=== PATIENT | female | born 1990 | race Caucasian/White ===

== ENCOUNTER 2016-07-21 09:20 | Outpatient (CLI) | payer OTHER | END 2016-07-21 09:21 | disposition home or self-care (01) | DX: Z11.3 Encounter for screening for infections with a predominantly sexual mode of transmission (principal) ==

== ENCOUNTER 2016-07-22 16:06 | Outpatient (CLI) | payer OTHER | END 2016-07-22 16:07 | disposition home or self-care (01) | DX: Z36 Encounter for antenatal screening of mother (principal) ==

== ENCOUNTER 2016-09-02 15:59 | Outpatient (CLI) | payer OTHER | END 2016-09-02 16:00 | disposition home or self-care (01) | DX: Z36 Encounter for antenatal screening of mother (principal) ==

== ENCOUNTER 2016-09-09 16:10 | Outpatient (CLI) | payer SELFPAY | END 2016-09-09 16:11 | disposition home or self-care (01) | DX: O35.1XX0 Maternal care for (suspected) chromosomal abnormality in fetus, not applicable or unspecified (principal) ==

== ENCOUNTER 2016-10-07 07:31 | Outpatient (CLI) | payer OTHER ==
--- NOTE | 2016-10-07 14:07 | Ultrasound Report ---
OB ULTRASOUND: 10/07/2016 CLINICAL INDICATION: anatomy. TECHNIQUE: Real-time scanning was performed with apparel trimmings sales representative static images obtained. LAST MENSTRUAL PERIOD -- Clinical Age -- US Age 19 weeks 6 days EFW [place] 318 g EFW% Hadlock -- Heart Rate 152 bpm EDC -- US EDC 02/25/2017 BPD [place] 19 weeks 4 days; means mm 44.8 HC [place] 19 weeks 6 days; means mm 173.0 AC [place] 19 weeks 5 days; means mm 144.2 FL [place] 20 weeks 0 days; means mm 32.2 Presentation moving Placental Location anterior Cervical Length 3.6 cm Amniotic Fluid 12.7 5-50% FINDINGS: There is a single viable intrauterine gestation, in variable position. heart rate is 152 BPM. The placenta is anterior, and is low lying. No berhane previa is identified, with the placental tip terminating 6 mm from the internal os. Amniotic fluid volume is normal, with an JUAN of 12.7. By size, the fetus measures 19.9 weeks. The following anatomic structures were visualized and appear normal: The intracranial contents, including the ventricles and posterior fossa; the lips and orbits; the spine; the heart, including 4 chamber view and outflow tracts, and diaphragm; the abdominal contents, including the stomach, the bilateral kidneys, and urinary bladder, as well as a normal 3 vessel cord insertion; 4 limbs. No free fluid or adnexal lesion is appreciated. IMPRESSION: SINGLE VIABLE INTRAUTERINE GESTATION, MEASURING 19.9 WEEKS BY SIZE. NORMAL ANATOMIC SURVEY. ANTERIOR, LOW LYING PLACENTA. THIS SHOULD BE REEVALUATED IN THE THIRD TRIMESTER. MTDD
== END 2016-10-07 07:32 | disposition home or self-care (01) ==
LOC: DI 07:31
PROVIDERS: ATTEND Nurse Practitioner Obstetrics & Gynecology
DX: Z36 Encounter for antenatal screening of mother (principal); O44.42 Low lying placenta NOS or without hemorrhage, second trimester
CPT/HCPCS: 76811

== ENCOUNTER 2016-11-18 07:46 | Outpatient (CLI) | payer OTHER ==
[2016-11-18 09:05] LABS: HCT - HEMATOCRIT 30.8 % (37.0-47.0); HGB - HEMOGLOBIN 10.6 g/dL (12.0-16.0); MEAN CORPUSCULAR HEMOGLOBIN 31.2 pg (27.0-31.0); MEAN CORPUSCULAR HGB CONC 34.4 g/dL (32.0-36.0); MEAN CORPUSCULAR VOLUME 90.6 fL (81.0-99.0); MEAN PLATELET VOLUME 6.9 fL (7.9-10.8); RED BLOOD COUNT 3.4 10^6/uL (4.20-5.40); RED CELL DISTRIBUTION WIDTH 13.6 % (12.0-15.0); WHITE BLOOD COUNT 17.7 x10^3/uL (4.8-10.8)
== END 2016-11-18 07:47 | disposition home or self-care (01) ==
LOC: LAB 07:46
PROVIDERS: ATTEND Obstetrics & Gynecology
DX: Z34.90 Encounter for supervision of normal pregnancy, unspecified, unspecified trimester (principal)
CPT/HCPCS: 36415; 82950; 86850

== ENCOUNTER 2016-11-24 10:30 | Outpatient (CLI) | payer OTHER | END 2016-11-24 10:31 | disposition home or self-care (01) | LOC: LAB 10:30 | PROVIDERS: ATTEND Obstetrics & Gynecology | DX: Z53.9 Procedure and treatment not carried out, unspecified reason (principal) ==

== ENCOUNTER → 2016-11-24 | Outpatient (CLI) | payer OTHER ==
[2016-11-24 08:44] LABS: GTT GLUCOSE,FASTING 94 mg/dL (70-100)
== END ==
LOC: LAB 08:00
PROVIDERS: ATTEND Obstetrics & Gynecology
DX: O99.810 Abnormal glucose complicating pregnancy (principal)
CPT/HCPCS: 36415; 82951

== ENCOUNTER 2016-12-02 13:11 | Outpatient (CLI) | payer OTHER ==
--- NOTE | 2016-12-02 18:18 | Ultrasound Report ---
LIMITED OB ULTRASOUND: 12/02/2016 CLINICAL INDICATION: Followup low-lying placenta. COMPARISON: 10/07/2016 TECHNIQUE: Real-time scanning was performed with inside outside sales representative static images obtained. There is a single viable intrauterine gestation, with heart rate 140 BPM. The cervix measures 3.2 cm, and is closed. Previously seen low-lying placenta has resolved. No previa is identified. IMPRESSION: RESOLUTION OF PREVIOUSLY SEEN LOW-LYING PLACENTA. JOB #: [id number] EXT JOB #:[id number]
== END 2016-12-02 13:12 | disposition home or self-care (01) ==
LOC: DI 13:11
PROVIDERS: ATTEND Obstetrics & Gynecology
DX: O44.42 Low lying placenta NOS or without hemorrhage, second trimester (principal)
CPT/HCPCS: 76815

== ENCOUNTER 2017-01-09 14:23 | Outpatient (CLI) | payer OTHER ==
[2017-01-09 15:03] LABS: BILIRUBIN,TOTAL 0.5 mg/dL (0.2-1.0); TOTAL PROTEIN 6.6 g/dL (6.7-8.2)
[2017-01-09 15:04] LABS: BILIRUBIN,DIRECT < 0.1 mg/dL (0.1-0.5)
== END 2017-01-09 14:24 | disposition home or self-care (01) ==
LOC: LAB 14:23
PROVIDERS: ATTEND Registered Nurse
DX: L29.8 Other pruritus (principal)
CPT/HCPCS: 36415; 80076; 82239

== ENCOUNTER → 2017-01-22 | Outpatient (CLI) | payer OTHER | LOC: LAB.R 08:00 | PROVIDERS: ATTEND Registered Nurse | DX: Z34.83 Encounter for supervision of other normal pregnancy, third trimester (principal) | CPT/HCPCS: 87081 ==

== ENCOUNTER 2017-02-09 13:08 | Inpatient (IN) | payer OTHER ==
[2017-02-09] MEDS ORDERED: OXYTOCIN/SODIUM CHLORIDE 250 ML IV ONE (14:04)
[2017-02-09] MEDS ORDERED: ONDANSETRON 4 MG/2 ML VIAL IVP PRN (14:04)
[2017-02-09] MEDS ORDERED: fentaNYL 100 MCG/2 ML VIAL IVP PRN (14:04)
[2017-02-09 14:38] LABS: BASOPHILS # (AUTO) 0.1 10^3/uL (0.0-0.1); BASOPHILS % (AUTO) 0.6 %; EOSINOPHILS # (AUTO) 0.1 10^3/uL (0.0-0.7); EOSINOPHILS % (AUTO) 0.6 %; HCT - HEMATOCRIT 34.4 % (37.0-47.0); HGB - HEMOGLOBIN 11.5 g/dL (12.0-16.0); LYMPHOCYTES # (AUTO) 1.9 10^3/uL (1.5-3.5); LYMPHOCYTES % (AUTO) 10.1 %; MEAN CORPUSCULAR HEMOGLOBIN 30.1 pg (27.0-31.0); MEAN CORPUSCULAR HGB CONC 33.5 g/dL (32.0-36.0); MEAN CORPUSCULAR VOLUME 89.7 fL (81.0-99.0); MEAN PLATELET VOLUME 8.4 fL (7.9-10.8); MONOCYTES # (AUTO) 0.8 10^3/uL (0.0-1.0); MONOCYTES % (AUTO) 4.3 %; NEUTROPHILS # (AUTO) 15.5 10^3/uL (1.5-6.6); NEUTROPHILS % (AUTO) 84.4 %; RED BLOOD COUNT 3.83 10^6/uL (4.20-5.40); UNCORRECTED WHITE BLOOD COUNT 18.3 x10^3/uL; WHITE BLOOD COUNT 18.3 x10^3/uL (4.8-10.8)
--- NOTE | 2017-02-09 14:52 | HISTORY & PHYSICAL EXAMINATION ---
Admit History - Instructions [place]/Slash: -Left hand click circles element as positive or present. -Right hand click slashes element as negative or not present. - Visit Reason Visit Reason: Membranes rupture (10:00 initial leak, large gush @ 12:00, clear fluid) - : 1 Parity: 0 Premature: 0 Ectopic: 0 : 0 Care: positive: [facility] Risk/History: positive: None Complications This : positive: Other (GBS positive) Smoking Status: Never smoker - Mother's Labs Mother's Blood Type: positive: B Mother's RH: positive: Positive GBS: positive: Group B Strep Positive Rubella Status: positive: Non-immune Meds/Allgy - Home Medications Home Medications: Ambulatory Orders Medication Instructions Recorded Confirmed Pnv95/Ferrous Fumarate/FA 1 each PO DAILY 02/09/17 02/09/17 [ Formula Tablet] - Allergies Allergies/Adverse Reactions: Allergies Allergy/AdvReac Type Severity Reaction Status Date / Time suture AdvReac Hives Verified 02/09/17 14:52 Physical - Abdominal Exam Vital Signs: Temp Pulse Resp BP Pulse Ox 37.0 C 124 H 16 130/77 98 02/09/17 13:29 02/09/17 13:29 02/09/17 13:29 02/09/17 13:29 02/09/17 13:29 Contraction Frequency (min/apart): q4-6 Contraction Intensity: positive: Mild Uterine Resting Tone: positive: Soft - Monitoring Heart Rate Baseline: 145 Strip Review: positive: Category I - Presentation Presentation: positive: Vertex - Vaginal Exam Membranes: positive: Membranes ruptured (gross SROM, per RN +nitrazine) Dilation (in cm): 2 Effacement (%): 70 Station: positive: -2 Cervical Position: positive: Posterior (Garvin's Score = 5) - Speculum Exam Speculum Exam Performed: positive: No Findings: positive: Gross leak, Nitrazine - Other Notes Labor Progress Note/Additional Text: Patricia is a 26 y/o @ 37w6d by LMP, consistent w/ 1st trimeter OB US. She received care consistently t/o her & her care was notable for abnormal quad screening w/ subsequent normal NIPT & FAS & election to not pursue diagnostic testing, elevated 1-hr gtt w/ WNL 3-hr gtt, pruritus w/ normal total bile acids & LFTs, & GBS positive screening @ 36 weeks' gestation. Her medical hx is notable for ACL repair, removal of cyst @ posterior neck., otherwise unremarkable. She is rubella non-immune & will need vaccination . She takes only a vitamin for medication & is allergic to dissolving sutures (contact dermatitis), unsure what kind of suture, specifically. Patricia experienced SROM for small amount of CAF @ 1000 followed by SROM for large amount of CAF @ 1200. She has had no bleeding. She is having mild, non- painful uterine contractions. She reports good FM. Physical exam: Gen: AAOx3, NAD, WA gravid female HEENT: grossly normocephalic, atraumatic, EOMI Lungs: b/l CTA t/o Heart: RRR [id number], no murmur Abd: gravid, NT, lie longitudinal, position cephalic, EFW 6.5-7#, palpable movement SVE: per RN /-2/med/post, gross SROM for CAF, nitrazine positive Extremities: FROM t/o, trace b/l pedal edema, no erythema, negative Tika's Skin: c/d/i, no lesion, striae gravidarum diffusely covering abdomen Neuro: no focal deficit Psych: excited, eager for labor, well-supported by partner, Jim, who is present & involved EFM: BL 145bpm, + accels, no decels, mod variability TOCO: UCs q4-6 min Plan for Labor - Plan For Labor Plan for Labor: A: 26 y/o @ 37w6d w/ SROM x5 hours, afebrile, CAF GBS positive FHTs cat I Unfavorable cervical status, not in labor Adequate pain control w/o analgesia/anesthesia P: 1. Admit to FBP for SROM 2. reviewed clinical scenario & options for management, including risks/benefits 3. Pt opts for misoprostol 50mcg po q 4 hours, reviewed protocol & CEFM 4. GBS positive, begin PCN now & continue per protocol q 4 hours for IPAP 5. Reassess cervical status x4 hours after initial misoprostol administration, earlier PRN 6. Analgesia/anesthesia PRN per pt request 7. Reviewed plan of care w/ pt, partner & RN @ bedside; all in agreement, without concerns. Dr. Ankur DO, back up CUSTOMER EXPERIENCE LEADER, updated as to pt's clinical status.
[2017-02-09] MEDS ORDERED: PENICILLIN G POTASSIUM 5,000,000 UNIT in SODIUM CHLORIDE 0.9% MINIBAG 100 ML IV ONE (15:00)
[2017-02-09] MEDS ORDERED: OXYTOCIN/SODIUM CHLORIDE 250 ML IV SCH (15:00)
[2017-02-09] MEDS: LACTATED RINGERS 1,000 ML IV SCH (15:21)
[2017-02-09] MEDS ORDERED: miSOPROStol 100 MCG TABLET PO SCH ×2 (16:00→17:00)
[2017-02-09] MEDS ORDERED: PENICILLIN G POTASSIUM 2,500,000 UNIT in SODIUM CHLORIDE 0.9% 100ML 100 ML IV SCH (19:00)
[2017-02-09] MEDS: PENICILLIN G POTASSIUM 2,500,000 UNIT in SODIUM CHLORIDE 0.9% 100ML 100 ML IV SCH (19:33)
--- NOTE | 2017-02-09 20:59 | PROVIDER PROGRESS NOTE ---
Labor Progress Note - Uterine Monitoring Uterine Monitoring Mode: positive: External toco Contraction Frequency (min/apart): 2-6 Contraction Intensity: positive: Mild to moderate Uterine Resting Tone: positive: Soft - Monitoring Monitor Mode: positive: External ultrasound Heart Rate Baseline: 135 Heart Rate Variability: positive: Moderate (6-25 bmp) Accelerations: positive: Present, 15x15 Decelerations: positive: None Strip Review: positive: Category I - Vaginal Exam Dilation (in cm): 3 Effacement (%): 80 Station: -1 Cervical Position: Midposition - Labor Progress Note Labor Progress Note/Additional Text: S: Patricia is feeling her contractions more intensely now & is coping well w/ her discomfort. She is not interested in hydrotherapy & is not particularly interested in being up & out of the bed. She is potentially interested in utilizing a ball, but expresses an interest in fentanyl to help her relax w/ her contractions & thinks she will ultimately desire epidural anesthesia. Her partner, Jim, is present @ the bedside & is generally supportive. O: VS: T98.3 HR 93 RR 16 BP 127/79 EFM: BL 135bpm, + accels, no decels, mod variability TOCO: q2-5 min x40-80 seconds, palpably mild-moderate SVE: 3/80/-1, mid-position, medium consistency: Garvin's score: 9; position ROP A: 26 y/o @ 37w6d s/p SROM for CAF @ 1000, for a total ruptured duration of 11 hours, afebrile s/p effective cervical ripening w/ 1 dose po misoprostol GBS positive s/p 2 doses IV PCN for IPAP Adequate pain control w/o analgesia/anesthesia FHTs cat I P: 1. Begin Pitocin infusion & titrate to maintain adequate contraction pattern by tocometry 2. Continue IV PCN per protocol for GBS prophylaxis 3. Reassess cervical status x4 hours s/p establishment of adequate contraction pattern by tocometry, earlier PRN 4. Reviewed all options for pain management, including pharmacologic/non- pharmacologic measures; analgesia/anesthesia PRN per pt request 5. Reviewed optimal positioning to encourage rotation & descent; assisted w/ placement on ball 6. Reviewed plan of care w/ pt & RN @ bedside; both in agreement, without concerns.
[2017-02-09] MEDS: SODIUM CHLORIDE FLUSH 0.9% 10 ML SYRINGE IVP PRN (21:48)
[2017-02-09] MEDS ORDERED: SODIUM CHLORIDE FLUSH 0.9% 10 ML SYRINGE IVP SCH (22:00)
[2017-02-10] MEDS: PENICILLIN G POTASSIUM 2,500,000 UNIT in SODIUM CHLORIDE 0.9% 100ML 100 ML IV SCH ×2 (00:11→03:51)
[2017-02-10] MEDS: LACTATED RINGERS 1,000 ML IV SCH ×2 (00:47→06:50)
[2017-02-10] MEDS ORDERED: fent/BUPIV 2 MCG/0.125% 250 ML EP ONE (00:58)
[2017-02-10] MEDS ORDERED: LACTATED RINGERS 500 ML IV ONE (01:41)
[2017-02-10] MEDS ORDERED: NALBUPHINE 20 MG/ML AMP IVP PRN (01:41)
[2017-02-10] MEDS ORDERED: ePHEDrine 50 MG/ML VIAL IVP PRN (01:41)
[2017-02-10] MEDS ORDERED: diphenhydrAMINE INJ 50 MG/ML VIAL IVP PRN (01:41)
[2017-02-10] MEDS ORDERED: fent/BUPIV 2 MCG/0.125% 250 ML EP PRN (01:41)
[2017-02-10] MEDS ORDERED: NALOXONE 0.4 MG/ML VIAL IVP PRN (01:41)
[2017-02-10] MEDS ORDERED: METOCLOPRAMIDE 10 MG/2 ML VIAL IVP PRN (01:41)
[2017-02-10] MEDS ORDERED: ONDANSETRON 4 MG/2 ML VIAL IVP PRN (01:41)
--- NOTE | 2017-02-10 02:47 | PROVIDER PROGRESS NOTE ---
Labor Progress Note - Uterine Monitoring Uterine Monitoring Mode: positive: External toco Contraction Frequency (min/apart): 2-3 Contraction Intensity: positive: Strong Uterine Resting Tone: positive: Soft - Monitoring Monitor Mode: positive: External ultrasound Heart Rate Baseline: 135 Heart Rate Variability: positive: Moderate (6-25 bmp) Accelerations: positive: Present, 15x15 Decelerations: positive: Early Strip Review: positive: Category I - Vaginal Exam Dilation (in cm): 9.5 Effacement (%): 100 Station: -1 Cervical Position: Anterior - Labor Progress Note Labor Progress Note/Additional Text: S: Pt comfortable w/ epidural anesthesia. Had been feeling significant lumbar & b/l hip pain. That sensation has resolved. No sensation of pressure. Partner present @ the bedside, supportive. O: VS: T 98.4; HR 86 RR 18 BP 111/73 EFM: BL 135bpm, +accels, occ early decels, mod variability TOCO: UCs q2-4 min on 1 mU/min of Pitocin SVE: thin anterior lip/100/-1; position LOP, ongoing leakage of CAF A: 26 y/o @ 38w0d s/p SROM 02/09/2017 @ 1000, for a total ruptured duration of 16.75hrs, afebrile Progressive cervical change s/p misoprostol po x1 dose & Pitocin infusion to max 1mU/min over a period of 5 hours GBS positive s/p 3 doses IV PCN for prophylaxis FHTs cat I Adequate pain control w/ epidural anesthesia P: 1. Allow to labor down x2 hours, then reassess station 2. Continue to titrate Pitocin infusion per protocol to maintain adequate contraction pattern by tocometry 3. Continue IV PCN for GBS prophylaxis per protocol 4. Peanut ball placed, reviewed optimal maternal positioning to facilitate rotation & descent 5. Encouraged frequent voiding; if unable, will catheterize to maximize space for descent
[2017-02-10] MEDS ORDERED: LIDOCAINE 2% 10 ML MDV ONE (03:19)
[2017-02-10] MEDS ORDERED: LIDOCAINE 1% 50 ML MDV ONE (03:21)
--- NOTE | 2017-02-10 06:13 | PROVIDER PROGRESS NOTE ---
Labor Progress Note - Uterine Monitoring Contraction Frequency (min/apart): 2-3 Contraction Intensity: positive: Moderate to strong Uterine Resting Tone: positive: Soft - Monitoring Monitor Mode: positive: External ultrasound Heart Rate Baseline: 130 Heart Rate Variability: positive: Moderate (6-25 bmp) Accelerations: positive: Present, 15x15 Decelerations: positive: Early Strip Review: positive: Category I - Vaginal Exam Dilation (in cm): 10 Effacement (%): 100 Station: 0 Cervical Position: Anterior - Labor Progress Note Labor Progress Note/Additional Text: S: Patricia is comfortable w/ her epidural. She was unable to feel to void & was straight catheterized for 200mL clear yellow urine. She is not having any sensation of pressure & has been unable to feel what she is doing w/ her expulsive efforts over the course of the last 30 minutes. She is having considerable difficulty coordinating her pushing attempts. Her is present @ the bedside & is supportive. O: VS: T98.4 HR 99 RR 20 BP 131/78 EFM BL 130bpm, + accels, early decels, mod variability TOCO: UCs q2-3 min x 60-80 seconds, palpably strong on 1mU/min of Pitocin SVE: 10/100/-1, descends to 0-+1 w/ expulsive efforts occasionally A: 26 y/o @ 38w0d s/p SROM for CAF 02/09/2017 @ 1000, for a total ruptured duration of 20 hours, afebrile GBS positive s/p 4 doses IV PCN for prophylaxis Dense epidural anesthesia w/ adequate pain control Progressive cervical change director a period of 9 hours Difficulty sustaining pushing efforts w/ very minimal sensation & poor coordination P: 1. Attempted various methods of effecting expulsive force w/ little change in ability to consistently, effectively bear down 2. Epidural off to allow to wear down some, will continue to labor down x30 minutes then resume pushing efforts 3. Continue to titrate Pitocin per protocol to maintain adequate contraction pattern by tocometry 4. Continue IV PCN per protocol for GBS prophylaxis 5. Anticipate w/ improved maternal expulsive efforts
--- NOTE | 2017-02-10 07:38 | PROVIDER PROGRESS NOTE ---
Labor Progress Note - Uterine Monitoring Uterine Monitoring Mode: positive: External toco Contraction Frequency (min/apart): 2-5 Contraction Intensity: positive: Moderate to strong Uterine Resting Tone: positive: Soft - Monitoring Monitor Mode: positive: Spiral electrode Heart Rate Baseline: 135 Heart Rate Variability: positive: Moderate (6-25 bmp) Accelerations: positive: Present, 15x15 Decelerations: positive: Early Strip Review: positive: Category I - Vaginal Exam Dilation (in cm): 10 Effacement (%): 100 Station: 0 (descends to +1 w/ expulsive efforts) Cervical Position: Anterior - Labor Progress Note Labor Progress Note/Additional Text: S: Pt complains of b/l hip pain w/ uterine contractions & lumbar pain. Does not have an urge to push, no sensation of pressure. Partner present @ bedside, involved & supportive. O: VS: 98.4, HR 108, RR 20, BP 142/92 EFM (FSE) BL 130bpm, + accels, + early decels, occ variable decel to soheila in 90s w/ spontaneous return to baseline <30 seconds TOCO: UCs q2-6 min x60-80 seconds, palpably strong on 3mU/min of Pitocin SVE: 10100/0-+1 A: 26 y/o @ 38w0d s/p SROM for CAF 02/09/2017 @ 1000, for a total ruptured duration of 21.5 hours, afebrile GBS positive s/p 4 doses IV PCN for prophylaxis Dense epidural anesthesia w/o sensation of pressure & difficulty coordinating expulsive efforts Pushed x40 minutes, rested x30 minutes, now pushing x1 hour w/ more significant descent FHTs cat I-cat II, overall reassuring P: 1. Continue pushing 2. Continue to titrate Pitocin infusion per protocol to maintain adequate labor pattern by tocometry 3. Continue GBS prophylaxis w/ IV PCN per protocol 4. Anticipate
[2017-02-10] MEDS ORDERED: miSOPROStol 200 MCG TABLET SL SCH (08:30)
[2017-02-10] MEDS ORDERED: miSOPROStol 200 MCG TABLET ONE (08:43)
[2017-02-10] MEDS ORDERED: METHYLERGONOVINE 0.2 MG/ML AMP ONE (08:43)
[2017-02-10] MEDS ORDERED: OXYTOCIN/SODIUM CHLORIDE 250 ML IV ONE (09:11)
--- NOTE | 2017-02-10 09:11 | DELIVERY NOTE ---
Delivery Note - Labor Labor: positive: Augmented by oxytocin - Delivery Method Delivery Method: positive: Spontaneous vaginal delivery - Cervical Ripening Method Cervical Ripening Method: positive: Misoprostil (misoprostol 50mcg po x1) - Presentation Presentation: positive: Vertex, OA - occiput anterior - Nuchal Cord Nuchal Cord: positive: None - Anesthetic Anesthetic Type: - Amniotic Fluid Description Amniotic Fluid Description: positive: Clear (SROM 02/09/2017 @ 1000, for a total ruptured duration of 22.5 hours, afebrile t/o) - Episiotomy Type Episiotomy Type: positive: None - Laceration Laceration: positive: None - Delivery Outcome Delivery Outcome: positive: Livebirth - Middle [place] Middle Bass: positive: Placed in direct skin contact with mother, Stimulated, Warmed , [place] used sex: positive: Male - Cord Cord: positive: 3 vessels - Placenta Placenta: positive: Intact, Spontaneous - Estimated Blood Loss Estimated Blood Loss (in cc): 950 - Post Delivery Events Post Delivery Events: positive: Hemorrhage (950mL 3rd stage hemorrhage despite active management of the third stage w/ Pitocin in IVFs; misoprostol 400mcg buccally administered x1 & methergine 0.2mg IM x1 pt's R lateral thigh) - Delivery Comments (Free Text/Narrative) Delivery Comments (Free Text/Narrative): Patricia Randhawa is a 26 y/o [id number] who was admitted @37w6d w/ SR for CAF 02/09 @1000. She received care beginning @ 8 weeks' gestation & was seen consistently t/o her for a total of 11 visits. Patricia began care w/ a BMI of 34.18 & lost 1 pound during the course of the . Her was complicated by positive quad screen followed by negative NIPT & declination of diagnostic testing, elevated 1-hr gtt w/ normal subsequent 3-hr gtt, rubella NI status, pruritus w/o evidence of IHCP, & GBS positive status. She received adequate antibiotic prophylaxis for a total of 4 doses IV PCN during the course of her labor. She elected oral misoprostol administration for cervical ripening & received Pitocin augmentation to a maximum of 4mU/min. She progressed steadily s/p misoprostol & Pitocin administration & requested epidural anesthesia for pain management. She was found to be completely dilated at 0330, for a total first stage duration of 7 hours. FHTs were monitored electronically t/o the first stage & were consistently category I. Patricia elected to labor down x2 hours secondary to a dense epidural & no sensation of pressure. She pushed w/ limited expulsive effort x40 minutes, at which point, her epidural was turned off & she was allowed to labor down for another 30 minutes. FSE was placed during 2nd stage secondary to difficulty maintaining consistent FHT tracing externally. Patricia resumed expulsive efforts w / better effect over time & pushed effectively to achieve of viable male in ANI position over intact perineum 02/10/2017 @ 0828, for a total second stage duration of 4hours, 58minutes, and a total ruptured duration of 22hours, 28minutes. She was afebrile t/o. FHTs were cat I-II & reassuring t/o the 2nd stage. Infant vigorous w/ spontaneous, lusty cry. Placed to maternal abdomen for drying/stim. Delayed cord clamping until cessation of pulsation, then cord clamped x2 by CNM, cut by FOB, 3VC noted, cord blood obtained. Active management of the 3rd stage w/ Pitocin in IVFs. Brisk vaginal bleeding preceded delivery of placenta & was ongoing t/o the 3rd stage, misoprostol 400mcg buccally administered x1 then methergine 0.2mg IM x1 administered in R lateral thigh. Placenta delivered spontaneously, [place], @ 0840, for a total 3rd stage duration of 12 minutes. BOLA intermittently atonic, responded well to bimanual compression & evacuation of moderate amount of clot. FF@U-1. Vagina & perineum inspected & found to be intact. EBL 950mL. Bleeding presently well- controlled. apgars 8 at 1min & 9 at 5min. Weight pending. Infant placed to breast & intermittently latching w/ latch 8/10 w/in 30 minutes of delivery, mother receptive to instruction. Father @ bedside, supportive. Mother & infant stable. Plan po methergine series & CBC x8 hours & in the am. Reviewed PPH implications w/ pt & her partner & encouraged po hydration & slow rise from seated position.
[2017-02-10] MEDS ORDERED: MAGNESIUM HYDROXIDE 2,400 MG/30 ML UDC PO PRN (09:30)
[2017-02-10] MEDS ORDERED: HYDROCORTISONE/PRAMOXINE 10 GM PR PRN (09:30)
[2017-02-10] MEDS ORDERED: OXYTOCIN/SODIUM CHLORIDE 250 ML IV SCH (09:30)
[2017-02-10] MEDS ORDERED: WITCH HAZEL/GLYCERIN 1 EACH MED..PAD TOP PRN (09:30)
[2017-02-10] MEDS ORDERED: HYDROCORTISONE 1% CREAM 28 GM TUBE PR PRN (09:30)
[2017-02-10] MEDS: ACETAMINOPHEN 325 MG TABLET PO SCH ×3 (10:19→22:50)
[2017-02-10] MEDS: CELECOXIB 100 MG CAPSULE PO SCH ×2 (10:19→21:54)
[2017-02-10] MEDS: SODIUM CHLORIDE FLUSH 0.9% 10 ML SYRINGE IVP PRN (14:14)
[2017-02-10] MEDS: CHERRY SYRUP 10 ML UDC PO SCH ×2 (14:33→22:50)
[2017-02-10] MEDS: METHYLERGONOVINE 0.2 MG/ML AMP PO SCH ×2 (14:33→22:50)
[2017-02-10] MEDS: DOCUSATE SODIUM 100 MG CAPSULE PO SCH (21:54)
[2017-02-11] MEDS: ACETAMINOPHEN 325 MG TABLET PO SCH ×2 (04:25→10:01)
[2017-02-11] MEDS: METHYLERGONOVINE 0.2 MG/ML AMP PO SCH (06:37)
[2017-02-11] MEDS: CHERRY SYRUP 10 ML UDC PO SCH (06:37)
[2017-02-11] MEDS ORDERED: FERROUS SULFATE 325 MG TABLET PO SCH (08:00)
[2017-02-11] MEDS ORDERED: PRENATAL VITAMIN TABLET PO SCH (08:00)
--- NOTE | 2017-02-11 08:02 | Discharge Plan ---
Discharge Plan Disposition: Home, Self Care Condition: Good Prescriptions: Acetaminophen [Tylenol] 650 mg PO Q6H #30 tablet Celecoxib [CeleBREX] 200 mg PO BID #10 capsule Diet: Regular Activity Restrictions: pelvic rest x6 weeks Shower Restrictions: No (do not immerse in bath of water) Driving Restrictions: No Weight Bearing: Full Weight Instruction Topics: Exercises Kegel, Breastfeed How To, Jaundice Signs Inf, Vaginal After, Anemia Additional Instructions or Follow Up instructions: Please call as needed for assistance. Emergency after-hours line is still available to you, and you can always call the clinic. Lola is happy to see you before your 2 week visit for support. Please plan to be seen 2 weeks for an office visit with Lola, and please plan to be seen again at 6 weeks for an office visit. You are welcome to call for an appointment as needed before that time. No Smoking: If you smoke, Please STOP! Call for help.
--- NOTE | 2017-02-11 08:10 | DISCHARGE SUMMARY ---
"Discharge Summary Admit Date: 02/09/17 Discharge Date: 02/11/17 Discharging Provider: lola montes de oca Code Status: Attempt Resuscitation Condition at Discharge: Good Discharge Disposition: 01 Home, Self Care Discharge Facility Name: [facility] - DIAGNOSES Admission Diagnoses: Leakage of Amniotic Fluid Group B Strep Positive 37 weeks of Discharge Diagnoses with Status of Each Condition: Immediate pp hemorrhage Asymptomatic anemia secondary to acute blood loss - HPI History of Present Illness: Patricia was admitted for SROM w/o labor @37w6d. She was leaking CAF. She was treated adequately w/ 4 doses IV PCN for GBS prophylaxis. She underwent cervical ripening w/ 1 dose oral misoprostol & subsequently received Pitocin infusion to maximum of 4mU/min infused. She received epidural anesthesia for her discomfort in labor. She progressed steadily to complete dilatation & delivered vaginally over an intact perineum w/o complication. Infant apgars 8/9 ; weight 6#14oz. She experienced immediate pp hemorrhage during the 3rd stage of labor, despite active management. Her bleeding was managed effectively w/ uterotonics & bimanual compression. - CONSULTS | PROCEDURES Procedures: Cervical ripening Induction of labor Epidural placement - HOSPITAL COURSE Hospital Course: Patricia underwent IOL for SROM w/o labor & received GBS prophylaxis w/ IV PCN. She received an epidural for pain management. She delivered vaginally over an intact perineum. Infant apgars were 8/9. She experienced a 3rd stage hemorrhage despite active management, and her bleeding was well-controlled w/ uterotonics & bimanual compression. , she was ambulating & voiding w/ o difficulty. She was passing flatus & tolerating po intake. She was well w/ excellent latch. She had minimal lochia rubra & was taking po methergine series w/o incident. She denied dizziness or lightheadedness & was not feeling weak. She was hydrating well. She was not planning to return to work & her partner would have 10 days off to assist her at home. Her mother, who is a former NICU nurse, had joined her from [place] to assist her over the course of the next 2-3 weeks. She was able to fully articulate pp warning s/sx, including pp depression s/sx, and pp aftercare instructions. She was ready to leave the hospital. - ALLERGIES Allergies/Adverse Reactions: Allergies Allergy/AdvReac Type Severity Reaction Status Date / Time suture AdvReac Hives Verified 02/09/17 14:52 - MEDICATIONS Home Medications: Ambulatory Orders Medication Instructions Recorded Confirmed Pnv95/Ferrous Fumarate/FA 1 each PO DAILY 02/09/17 02/09/17 [ Formula Tablet] Acetaminophen [Tylenol] 650 mg PO Q6H #30 tablet 02/11/17 Celecoxib [CeleBREX] 200 mg PO BID #10 capsule 02/11/17 Home Medications Other | Comments: Methergine 0.2mg po TID x2 days (for a total of 3 days). #6tabs 0 refills. Rx electronically sent to pharmacy. - PHYSICAL EXAM AT DISCHARGE General Appearance: positive: No acute distress, Alert Eyes Bilateral: positive: Normal inspection, PERRL, EOMI ENT: positive: ENT inspection nml Respiratory: positive: Chest non-tender, No respiratory distress, Breath sounds nml Cardiovascular: positive: Regular rate & rhythm, No murmur, No gallop Abdomen: positive: Non-tender, Nml bowel sounds, No distention, Other (FF U-1). negative: Mass Skin: positive: Color nml, No rash, Warm, Dry Extremities: positive: Non-tender, Full ROM, Nml appearance, No pedal edema. negative: Calf tenderness, Tika's sign/cords Neurologic/Psychiatric: positive: Oriented x3, CN's nml (2-12), Motor nml, Sensation nml, Mood/affect nml Physical Exam Other/Comments: Breasts b/l S, NT; Nipples b/l intact & everted; perineum intact w/o erythema/ edema/ecchymosis. Minimal lochia rubra. - LABS Result Diagrams: 02/11/17 06:25 - FOLLOW UP Follow Up: x2 weeks in clinic w/ Lola Montes De Oca CNM, ARNP & x6 weeks in clinic w/ Lola Montes De Oca CNM, ARNP; earlier PRN - TIME SPENT Time Spent in Discharge (Minutes): 30"
[2017-02-11] MEDS: DOCUSATE SODIUM 100 MG CAPSULE PO SCH (09:12)
[2017-02-11] MEDS: CELECOXIB 100 MG CAPSULE PO SCH (10:01)
[2017-02-11] MEDS ORDERED: MEASLES,MUMPS & RUBELLA VACC 0.5 ML VIAL SUBQ ONE (12:00)
[2017-02-11 15:16] VITALS: BP 115/68
--- NOTE | 2017-02-11 15:21 | Labor Flowsheet ---
Labor Flowsheet Datetime Report Generated by CPN: 02/11/2017 15:20 Datetime: 02/11/2017 07:39 VITAL SIGNS NBP Sys/Molly/Mean (mmHg): 107 : 67 : 76 Pulse: 77 LaborFlag: Labor Datetime: 02/11/2017 04:40 Stage of : Labor Datetime: 02/10/2017 08:28 UTERINE ACTIVITY Monitor Mode: External Frequency (min): 2-5 Quality: Strong Duration (sec): 60-90 Pattern: Normal: <= 5 Contractions in 10 Minutes Resting Tone (Palpate): Relaxed Pitocin Checklist: At Least 1 Acceleration of 15 bpm x 15 Seconds in 30 Minutes or Adequate Variabi lity; No More than 1 Late Deceleration Occurred in Past 30 Minutes; No More than 2 Variable Decelerat ions > 60 Seconds in Duration and decreasing >60 bpm in 30 minutes; No More than 5 Uterine Contractio ns in 10 Minutes for any 20 Minute Interval; Uterus Palpates Soft between Contractions ASSESSMENT A Monitor Mode: Internal Scalp Electrode FHR Baseline Rate : 130 Variability: Moderate 6-25 bpm Accelerations: 15X15 Decelerations: Variable Category: Category II Comments: pt pushing with contractions, variables with contractions. Milagrosa at bedside. Vigorous male born at 0828. Datetime: 02/10/2017 08:20 MEDICATIONS Pitocin (milliunits): Increased to @ 4 Datetime: 02/10/2017 07:00 Monitor Interventions for UA: [place] Adjusted Oxygen Method: Room Air Datetime: 02/10/2017 06:45 SpO2 (%): 97 Monitor Interventions for FHR: Ultrasound Adjusted Pushing Position: Pushing with Contractions; Pushing Lithotomy Datetime: 02/10/2017 06:11 Temperature (C): 36.7 Datetime: 02/10/2017 06:00 Anesthesia Level Check: T11 Datetime: 02/10/2017 05:59 STAGE 2 Pushing: No Urge to Push Pushing Progress: Ineffective Pushing Stage 2 Comments: Paused pushing Datetime: 02/10/2017 05:55 Anesthesia Comments: Epidural pump off per CNM Datetime: 02/10/2017 05:45 Contraction Comments: Pushing Datetime: 02/10/2017 05:20 VAGINAL EXAM Dilatation (cm): 10.0 Effacement (%): 100 Station: -1 Vaginal Exam Comments: Descent to 0 and +1 station with pushing during contractions Datetime: 02/10/2017 05:00 Hygiene: Underpad Changed I/O Interventions: Straight Cath (ml) @ (Annotations: 200) Datetime: 02/10/2017 04:45 Patient Care Comments: Attempted bedside commode Datetime: 02/10/2017 04:18 Patient Position/Activity: Right Lateral Datetime: 02/10/2017 04:15 Temperature Route: Oral Datetime: 02/10/2017 04:01 FHR Baseline Changes: No Baseline Change Datetime: 02/10/2017 02:33 Exam by: Boomghan Gaagrosa, CNM Vaginal Bleeding: Normal Show Position 'A': Left Occipital Posterior Datetime: 02/10/2017 02:30 COMMUNICATION Communication: RN at Bedside Communication Comments: Lola Koromaagrosa, CNM Datetime: 02/10/2017 01:23 Epidural Procedure: Completed Epidural Procedure Other: Pump Started Datetime: 02/10/2017 00:58 PROCEDURE TIME OUT Procedure Verify: Correct Patient Identity; Correct Side and Site are Marked; Accurate Procedure Co nsent Form; Agreement on Procedure to be Done; Correct Patient Position; Relevant Images and Results are Properly Labeled and Displayed; Addressed Need to Administer Antibiotics or Fluids for Irrigation ; Safety Precautions Based on Patient History or Medication Use ANESTHESIA Anesthesia Plans: Epidural Epidural Positioning: Sitting Datetime: 02/10/2017 00:15 Respirations: 18 Datetime: 02/09/2017 21:59 Temperature (F): 98.4 Temperature (C): 36.9 Datetime: 02/09/2017 21:49 PAIN Pain Scale: 6 Pain Presence: Intermittent Pain Type: Cramping Pain Location: Abdomen; Back Pain Relief Measures: Pain Medication Given Pain Coping: Talking Through Contractions; Breathing Through Contractions Analgesics/Sedatives: Fentanyl (mcg) @ 100 Datetime: 02/09/2017 20:32 Cervix, Consistency: Soft Cervix, Position: Midposition Datetime: 02/09/2017 19:33 Antibiotics: Penicillin IV (Units) @ 2,500,000 Datetime: 02/09/2017 19:30 Pain Assessment Comments: Patient states pain level is tolerable Datetime: 02/09/2017 16:29 PATIENT CARE IV/Blood Work: IV Saline Locked
== END 2017-02-11 13:30 | disposition home or self-care (01) | DRG 774 ==
LOC: WFO 13:08 → FBP 13:21 → WFO 14:03 → FBP 14:04
PROVIDERS: ADMIT Registered Nurse; ATTEND Registered Nurse
PROC: 10E0XZZ Delivery of Products of Conception, External Approach (ICD-10-PCS; principal; 2017-02-10)
DX: O42.02 Full-term premature rupture of membranes, onset of labor within 24 hours of rupture (principal); O72.0 Third-stage hemorrhage; D62 Acute posthemorrhagic anemia; O99.824 Streptococcus B carrier state complicating childbirth; O90.81 Anemia of the puerperium; Z3A.37 37 weeks gestation of pregnancy; Z37.0 Single live birth
CPT/HCPCS: 36415; 85018; 85025; 99213

== ENCOUNTER 2018-06-06 09:19 | Outpatient (CLI) | payer OTHER ==
--- NOTE | 2018-06-07 02:58 | Ultrasound Report ---
Reason: TEST POSITIVE Procedure Date: 06/06/2018 Accession Number: [id number] / [id number] Procedure: US - OB First Trimester CPT Code: FULL RESULT: EXAM: FIRST TRIMESTER OBSTETRIC ULTRASOUND (Less than 11 weeks) EXAM DATE: 06/06/2018 10:32 AM. CLINICAL HISTORY: test positive. LMP: 04/22/2018, 6 weeks 3 days. COMPARISONS: None. TECHNIQUE: Transabdominal and transvaginal ultrasound examination with static image documentation. FINDINGS: Gestational Sac: An intrauterine fluid-filled sac contains both an embryo and yolk sac. Tiny perigestational bleed. Embryo: CRL (crown-rump length) measures 2 mm corresponding to an estimated gestational age of 6 weeks 0 days. Heart Rate: 107 beats per minute. Placenta: Not visible at this gestational age. Amniotic fluid: Not accurately assessed at this gestational age. Uterus: Unremarkable anteverted appearance. Cervix: Closed. Right Ovary: Volume 10 cc. Normal echotexture and blood flow. Left Ovary: Volume 4 cc. Normal echotexture and blood flow. Free Fluid: None. Other: None. IMPRESSION: Single live intrauterine at 6 weeks 3 days by LMP, today's exam is concordant -- for an estimated delivery date of 01/27/2019. RADIA
== END 2018-06-06 09:20 | disposition home or self-care (01) ==
LOC: DI 09:19
PROVIDERS: ATTEND Registered Nurse
DX: Z32.01 Encounter for pregnancy test, result positive (principal); Z3A.01 Less than 8 weeks gestation of pregnancy
CPT/HCPCS: 76801

== ENCOUNTER 2018-07-06 10:48 | Outpatient (CLI) | payer OTHER | END 2018-07-06 23:59 | disposition home or self-care (01) | LOC: LAB.R 10:48 | PROVIDERS: ATTEND Nurse Practitioner Obstetrics & Gynecology | DX: Z11.3 Encounter for screening for infections with a predominantly sexual mode of transmission (principal) | CPT/HCPCS: 87491; 87591 ==

== ENCOUNTER 2018-07-06 10:59 | Outpatient (CLI) | payer OTHER ==
[2018-07-06 11:34] LABS: BASOPHILS % (AUTO) 0.3 %; EOSINOPHILS # (AUTO) 0.2 10^3/uL (0.0-0.7); EOSINOPHILS % (AUTO) 1.4 %; HGB - HEMOGLOBIN 12.3 g/dL (12.0-16.0); LYMPHOCYTES # (AUTO) 1.9 10^3/uL (1.5-3.5); LYMPHOCYTES % (AUTO) 15.6 %; MEAN CORPUSCULAR HEMOGLOBIN 32.9 pg (27.0-31.0); MEAN CORPUSCULAR HGB CONC 34.5 g/dL (32.0-36.0); MEAN CORPUSCULAR VOLUME 95.3 fL (81.0-99.0); MEAN PLATELET VOLUME 6.8 fL (7.9-10.8); MONOCYTES # (AUTO) 0.6 10^3/uL (0.0-1.0); MONOCYTES % (AUTO) 4.7 %; NEUTROPHILS # (AUTO) 9.3 10^3/uL (1.5-6.6); PLT - PLATELET COUNT 372 10^3/uL (130-450); RED BLOOD COUNT 3.74 10^6/uL (4.20-5.40); RED CELL DISTRIBUTION WIDTH 12.7 % (12.0-15.0); WHITE BLOOD COUNT 11.9 x10^3/uL (4.8-10.8)
[2018-07-06 11:47] LABS: BILIRUBIN,URINE NEGATIVE (NEGATIVE); CLARITY,URINE CLEAR (CLEAR); GLUCOSE, URINE (UA) NEGATIVE (NEGATIVE); KETONES,URINE (UA) NEGATIVE (NEGATIVE); LEUKOCYTE ESTERASE, URINE TRACE (NEGATIVE); NITRITE,URINE NEGATIVE (NEGATIVE); OCCULT BLOOD,URINE NEGATIVE (NEGATIVE); PROTEIN,URINE NEGATIVE (NEGATIVE); UROBILINOGEN,URINE 0.2 (NORMAL) E.U./dL (NORMAL)
[2018-07-06 11:53] LABS: BACTERIA,URINE Rare /HPF (None Seen); RBC,URINE 0-5 /HPF (0-5); SQUAMOUS EPITHELIAL CELL,UR RARE Squamous (<= Few)
[2018-07-07 13:31] LABS: HEPATITIS B SURFACE ANTIGEN NON-REACTIVE (NON-REACTIVE); HEPATITIS C ANTIBODY NON-REACTIVE (NON-REACTIVE)
[2018-07-07 15:32] LABS: HIV AG/AB 4TH GEN NON-REACTIVE (NON-REACTIVE)
== END 2018-07-06 11:00 | disposition home or self-care (01) ==
LOC: LAB 10:59
PROVIDERS: ATTEND Nurse Practitioner Obstetrics & Gynecology
DX: Z36.9 Encounter for antenatal screening, unspecified (principal); Z11.3 Encounter for screening for infections with a predominantly sexual mode of transmission
CPT/HCPCS: 36415; 81001; 81599; 85025; 86592; 86762; 86803; 86850; 86900; 86901; 87086; 87340; 87389; 87491; 87591

== ENCOUNTER 2018-07-19 10:07 | Outpatient (CLI) | payer OTHER | END 2018-07-19 10:08 | disposition home or self-care (01) | LOC: LAB 10:07 | PROVIDERS: ATTEND Nurse Practitioner Obstetrics & Gynecology | DX: Z36.8A Encounter for antenatal screening for other genetic defects (principal); O99.210 Obesity complicating pregnancy, unspecified trimester | CPT/HCPCS: 36415; 82950 ==

== ENCOUNTER 2018-08-03 11:30 | Outpatient (CLI) | payer OTHER | END 2018-08-03 11:31 | disposition home or self-care (01) | LOC: LAB 11:30 | PROVIDERS: ATTEND Registered Nurse | DX: Z36.8A Encounter for antenatal screening for other genetic defects (principal) | CPT/HCPCS: 36415; 81599; 82677; 84163; 84702; 86336 ==

== ENCOUNTER 2018-08-24 08:00 | Outpatient (CLI) | payer OTHER | END 2018-08-24 08:01 | disposition home or self-care (01) | LOC: LAB.R 08:00 | PROVIDERS: ATTEND Nurse Practitioner Obstetrics & Gynecology | DX: N39.9 Disorder of urinary system, unspecified (principal) | CPT/HCPCS: 87086 ==

== ENCOUNTER 2018-09-09 13:35 | Outpatient (CLI) | payer OTHER ==
--- NOTE | 2018-09-13 07:43 | Ultrasound Report ---
Reason: [facility] FOR SCREENING FOR OTHER GENETIC Procedure Date: 09/09/2018 Accession Number: [id number] / [id number] Procedure: US - OB Detailed Eval CPT Code: FULL RESULT: EXAM: COMPLETE OBSTETRICAL ULTRASOUND EXAM DATE: 09/09/2018 04:30 PM. CLINICAL HISTORY: anatomic survey. COMPARISON: OB DETAILED EVAL 10/07/2016 7:41 AM. TECHNIQUE: Real-time sonographic evaluation of the fetus performed by the genetic coordinator. Multiple surgical device sales representative static images were saved for review. Additional transvaginal imaging to more accurately evaluate cervical length/placental position/etc. DATING: Established EGA 20 weeks 0 days with JAVIER 01/27/2019 based on LMP. EGA 19 weeks 4 days with JAVIER 01/30/2019 based on first ultrasound on 06/06/2018. EGA 19 weeks 5 days with JAVIER 01/29/2019 based on the current ultrasound. GENERAL EVALUATION [place] . Cardiac activity: 159 bpm. movement: Visualized. Presentation: Cephalic. Placenta: Anterior position. No evidence for previa. Umbilical cord: 3 vessel cord. Central placental cord origin. Amniotic fluid: Subjectively normal. MVP 4.6 cm. JUAN is 13.3 cm. BIOMETRY Bi-Parietal Diameter (BPD): 4.61 cm, 19 weeks 6 days Head Circumference (HC): 17.07 cm, 19 weeks 4 days Abdominal Circumference (AC): 14.92 cm, 20 weeks 1 day Femur Length (FL): 3.08 cm, 19 weeks 3 days Estimated Weight: 317 g, 38th percentile for 19 weeks 6 days. ANATOMY The intracranial structures, profile, face/nose/lips, spine, 4 chamber heart and outflow tracts, stomach, abdominal wall and cord insertion, diaphragm, kidneys, bladder, and extremities were visualized and demonstrate no abnormality. MATERNAL STRUCTURES Uterus: Unremarkable. Cervix: Long and closed. Transabdominal length 4.4 cm. Right ovary/adnexa: Not imaged. Left ovary/adnexa: Not imaged. Free fluid: None. IMPRESSION: 1. [place] live intrauterine with gestational age 19 weeks 6 days based on this ultrasound examination, correlating well with established EGA of 20 weeks 0 days. 2. Estimated weight is within expected limits for assigned dating. 3. Normal anatomic survey. No anatomic abnormalities are detected at this time. RADIA
== END 2018-09-09 13:36 | disposition home or self-care (01) ==
LOC: DI 13:35
PROVIDERS: ATTEND Registered Nurse
DX: Z36.8A Encounter for antenatal screening for other genetic defects (principal)
CPT/HCPCS: 76811

== ENCOUNTER 2018-10-22 09:45 | Outpatient (CLI) | payer OTHER ==
[2018-10-22 11:27] LABS: HGB - HEMOGLOBIN 10.1 g/dL (12.0-16.0); MEAN CORPUSCULAR HEMOGLOBIN 31.2 pg (27.0-31.0); MEAN CORPUSCULAR HGB CONC 31.3 g/dL (32.0-36.0); MEAN CORPUSCULAR VOLUME 99.7 fL (81.0-99.0); MEAN PLATELET VOLUME 9.1 fL (7.9-10.8); RED BLOOD COUNT 3.24 10^6/uL (4.20-5.40); RED CELL DISTRIBUTION WIDTH 13.8 % (12.0-15.0); WHITE BLOOD COUNT 17.5 x10^3/uL (4.8-10.8)
== END 2018-10-22 09:46 | disposition home or self-care (01) ==
LOC: LAB 09:45
PROVIDERS: ATTEND Registered Nurse
DX: Z34.90 Encounter for supervision of normal pregnancy, unspecified, unspecified trimester (principal)
CPT/HCPCS: 36415; 82950; 85027; 86850

== ENCOUNTER 2018-11-04 08:09 | Outpatient (CLI) | payer OTHER | END 2018-11-04 08:10 | disposition home or self-care (01) | LOC: LAB 08:09 | PROVIDERS: ATTEND Nurse Practitioner Obstetrics & Gynecology | DX: O99.810 Abnormal glucose complicating pregnancy (principal) ==

== ENCOUNTER 2018-11-11 09:37 | Outpatient (CLI) | payer OTHER | END 2018-11-11 09:38 | disposition home or self-care (01) | LOC: LAB 09:37 | PROVIDERS: ATTEND Nurse Practitioner Obstetrics & Gynecology | DX: O99.810 Abnormal glucose complicating pregnancy (principal) | CPT/HCPCS: 36415; 82951; 82952 ==

== ENCOUNTER 2018-12-29 08:00 | Outpatient (CLI) | payer OTHER ==
[2018-12-29 22:08] LABS: TRICHOMONAS VAGINALIS DNA NEGATIVE (NEGATIVE)
== END 2018-12-29 23:59 | disposition home or self-care (01) ==
LOC: LAB.R 08:00
PROVIDERS: ATTEND Nurse Practitioner Obstetrics & Gynecology
DX: Z36.85 Encounter for antenatal screening for Streptococcus B (principal); Z36.89 Encounter for other specified antenatal screening
CPT/HCPCS: 87491; 87591; 87661; 87797

== ENCOUNTER 2019-01-27 18:36 | Inpatient (IN) | payer OTHER ==
[2019-01-27] MEDS ORDERED: TERBUTALINE 1 MG/ML VIAL SUBQ PRN (19:05)
[2019-01-27] MEDS ORDERED: SODIUM CHLORIDE FLUSH 0.9% 10 ML SYRINGE IVP PRN (19:05)
[2019-01-27] MEDS ORDERED: METOCLOPRAMIDE 10 MG/2 ML VIAL IVP PRN ×2 (19:05→23:05)
[2019-01-27] MEDS ORDERED: AMPICILLIN 2 GM in SODIUM CHLORIDE 0.9% MINIBAG 100 ML IV ONE (19:05)
[2019-01-27] MEDS ORDERED: ONDANSETRON 4 MG/2 ML VIAL IVP PRN ×2 (19:05→23:05)
[2019-01-27 19:25] LABS: BASOPHILS % (AUTO) 0.4 %; EOSINOPHILS % (AUTO) 0.5 %; HGB - HEMOGLOBIN 11.5 g/dL (12.0-16.0); MEAN CORPUSCULAR HEMOGLOBIN 30.7 pg (27.0-31.0); MEAN CORPUSCULAR HGB CONC 33.3 g/dL (32.0-36.0); MEAN PLATELET VOLUME 9.6 fL (7.9-10.8); MONOCYTES % (AUTO) 4.9 %; NEUTROPHILS % (AUTO) 81.8 %; PLT - PLATELET COUNT 434 10^3/uL (130-450); RED BLOOD COUNT 3.75 10^6/uL (4.20-5.40); RED CELL DISTRIBUTION WIDTH 15.3 % (12.0-15.0); WHITE BLOOD COUNT 25.5 x10^3/uL (4.8-10.8)
[2019-01-27 19:26] LABS: ABNORMAL LYMPHS % (MANUAL) 0 %
[2019-01-27 19:41] LABS: BAND NEUTROPHILS % (MANUAL) 3 %; DIFFERENTIAL COMMENT MANUAL DIFFERENTIAL; EOSINOPHILS # (MANUAL) 0.3 10^3/uL (0-0.7); LYMPHOCYTES # (MANUAL) 1.3 10^3/uL (1.5-3.5); LYMPHOCYTES % (MANUAL) 5 %; MONOCYTES # (MANUAL) 1.8 10^3/uL (0.0-1.0); PLATELET ESTIMATE, MANUAL NORMAL (130-450,000) (NORMAL); PLATELET MORPHOLOGY NORMAL APPEARANCE (NORMAL); RBC MORPHOLOGY (MULTIPLE) NORMAL APPEARANCE (NORMAL)
[2019-01-27] MEDS ORDERED: OXYTOCIN/DEXTROSE 5 % 30 UNIT/500 ML BAG IV SCH (20:00)
[2019-01-27] MEDS: LACTATED RINGERS 1,000 ML IV SCH (20:14)
[2019-01-27] MEDS ORDERED: fentaNYL 250 MCG/5 ML VIAL ONE (22:20)
[2019-01-27] MEDS ORDERED: BUPIVACAINE 0.75% MPF 10 ML VIAL ONE (22:21)
[2019-01-27] MEDS ORDERED: SODIUM CHLORIDE 0.9% 250 ML IV ONE (22:21)
--- NOTE | 2019-01-27 23:03 | ANESTHESIA ---
Pre-Anesthesia VS, & Labs - Diagnosis Active labor - Procedure Continuous labor epidural Height 5 ft 5 in Weight (kg) 102.058 kg - NPO Other (ice chips) - Is Patient ?: Yes - Lab Results Current Lab Results: Laboratory Tests 01/27/19 19:17: WBC 25.5 H, RBC 3.75 L, Hgb 11.5 L, Hct 34.5 L, MCV 92.0, MCH 30.7, MCHC 33.3, RDW 15.3 H, Plt Count 434, MPV 9.6, Neut # (Auto) Not Reportable, Lymph # (Auto) Not Reportable, [place] # (Auto) Not Reportable, Eos # (Auto) Not Reportable, Baso # (Auto) Not Reportable, Absolute Nucleated RBC Not Reportable, Total Counted 100, Band Neuts % (Manual) 3, Abnorm Lymph % (Manual) 0, Nucleated RBC % Not Reportable, Neutrophils # (Manual) 22.2 H, Lymphocytes # (Manual) 1.3 L, Monocytes # (Manual) 1.8 H, Eosinophils # (Manual) 0.3, Basophils # (Manual) 0.0, Differential Comment MANUAL DIFFERENTIAL, Manual Slide Review Indicated, WBC Morphology NORMAL APPEARANCE, Platelet Estimate NORMAL (130-450,000), Platelet Morphology NORMAL APPEARANCE, RBC Morph Micro Appear NORMAL APPEARANCE Fish Bones: 01/27/19 19:17 Home Medications and Allergies Active Medications Acetaminophen (Tylenol) 650 mg PO Q6H [facility] Ampicillin Sodium 1 gm/ Sodium (Chloride) 100 mls @ 200 mls/hr IV Q4H [facility] Lactated Ringer's (Lr) 1,000 mls @ 150 mls/hr IV .Q6H40M [facility] Last Admin: 01/27/19 20:14 Dose: 150 mls/hr OXYTOCIN/DEXTROSE 5 % (Pitocin/Dextrose 5%) 30 unit in 500 mls @ 1 mls/hr IV TITR BASSEM; Protocol Metoclopramide HCl (Reglan Inj) 5 mg IVP Q6H PRN PRN Reason: Nausea / Vomiting Ondansetron HCl (Zofran Inj) 4 mg IVP Q4H PRN PRN Reason: Nausea / Vomiting Sodium Chloride (Normal Saline Flush 0.9%) 10 ml IVP PRN PRN PRN Reason: NEEDED PER PROVIDER ORDERS Sodium Chloride (Normal Saline Flush 0.9%) 10 ml IVP 0100,0900,1700 BAS[facility] Terbutaline Sulfate (Terbutaline) 0.25 mg SUBQ Q1H PRN PRN Reason: distress Pnv95/Ferrous Fumarate/FA [ Formula Tablet] 1 each PO DAILY 02/09/17 Allergies/Adverse Reactions: Allergies Allergy/AdvReac Type Severity Reaction Status Date / Time suture AdvReac Hives Verified 02/09/17 14:52 Anes History & Medical History - Anesthetic History Anesthesia Complications: reports: No previous complications Family history of Anesthesia Complications: Denies Family history of Malignant Hyperthermia: Denies - Medical History Cardiovascular: reports: None Pulmonary: reports: None Gastrointestinal: reports: None Urinary: reports: None Neuro: reports: None Musculoskeletal: reports: None Endocrine/Autoimmune: reports: None Blood Disorders: reports: None Skin: reports: None Smoking Status: Never smoker Psychosocial: reports: No issues indicated Exam General: Alert, Oriented x3, Moderate distress Dental: WNL Mouth Opening: Greater than 4 Fingerbreadths Neck Mobility: Normal Mallampati classification: II Thyromental Distance: greater than 6 cm Neurological: Normal speech Mental/Cognitive Status: Alert/Oriented X3 Cognitive Status: Within normal limits Plan Anesthesia Type: Epidural Consent for Procedure(s) Verified and Reviewed: Yes Code Status: Attempt Resuscitation ASA classification: 2-Mild systemic disease Is this case an emergency?: Yes
[2019-01-27] MEDS ORDERED: fent/BUPIV 2 MCG/0.125% 250 ML EP PRN (23:04)
[2019-01-27] MEDS ORDERED: NALOXONE 0.4 MG/ML VIAL IVP PRN (23:05)
[2019-01-27] MEDS ORDERED: LACTATED RINGERS 500 ML IV ONE (23:05)
[2019-01-27] MEDS ORDERED: ePHEDrine 50 MG/ML VIAL IVP PRN (23:05)
[2019-01-27] MEDS ORDERED: diphenhydrAMINE INJ 50 MG/ML VIAL IVP PRN (23:05)
[2019-01-27] MEDS ORDERED: NALBUPHINE 10 MG/ML AMP IVP PRN (23:05)
[2019-01-28] MEDS: LACTATED RINGERS 1,000 ML IV SCH ×4 (02:09→15:53)
[2019-01-28] MEDS: ACETAMINOPHEN 325 MG TABLET PO SCH ×2 (03:13→09:13)
[2019-01-28] MEDS ORDERED: ACETAMINOPHEN 500 MG TABLET PO PRN (03:29)
--- NOTE | 2019-01-28 03:35 | HISTORY & PHYSICAL EXAMINATION ---
Admit History - : 2 Parity: 1 Risk/History: positive: None Complications This : positive: Treated for GBS/UTI Smoking Status: Never smoker - Mother's Labs Mother's Blood Type: positive: B Mother's RH: positive: Positive GBS: positive: Group B Strep Positive Rubella Status: positive: Non-immune - Other Maternal History Other Maternal History: Patient is a 28-year-old G2, P1 at 40 weeks and 0 days estimated gestational age here with rule out rupture membranes. Patient was seen in clinic today and underwent stripping of her membranes. She was 3 cm dilated in clinic. She presented to triage with painful contractions. On attempt at cervical exam, her membranes ruptured. Intermittent contractions. No vaginal bleeding. Gross loss of fluid. Endorses movement. GBS positive.Rubella nonimmune Meds/Allgy - Home Medications Home Medications: Ambulatory Orders Medication Instructions Recorded Confirmed Pnv95/Ferrous Fumarate/FA 1 each PO DAILY 02/09/17 02/09/17 [ Formula Tablet] Acetaminophen [Tylenol] 650 mg PO Q6H #30 tablet 02/11/17 Celecoxib [CeleBREX] 200 mg PO BID #10 capsule 02/11/17 - Allergies Allergies/Adverse Reactions: Allergies Allergy/AdvReac Type Severity Reaction Status Date / Time suture AdvReac Hives Verified 02/09/17 14:52 Review of Systems - Other Findings Other Findings: As per HPI otherwise remaining systems are negative. Physical - Abdominal Exam Vital Signs: Temp Pulse Resp BP Pulse Ox 95 18 119/64 99 01/28/19 03:13 01/28/19 03:13 01/28/19 03:13 01/28/19 03:13 Contraction Intensity: positive: Moderate - Monitoring Strip Review: positive: Category I - Presentation Presentation: positive: Vertex - Vaginal Exam Membranes: positive: Membranes ruptured Dilation (in cm): 6 Effacement (%): 80 Station: positive: -2 Cervical Position: positive: Posterior - Speculum Exam Speculum Exam Performed: positive: No Findings: positive: Gross leak Plan for Labor - Plan For Labor Plan for Labor: 28-year-old G2, P1 at 40+0 weeks estimated gestational age here with SROM SROM at 40+0 weeks estimated gestational age -Spontaneous rupture of membranes is noted by gross leakage of fluid. -Expectant management for initial 4 hours for GBS ppx -Consider augmentation with Pitocin once initial 4-hour window is closed -Anticipate FWB: -Category 1 tracing -Vertex by ultrasound and palpation -GBS positive Ampicillin per protocol for GBS prophylaxis Rh+ /rubella nonimmune Anticipate Inpatient care
--- NOTE | 2019-01-28 03:47 | DELIVERY NOTE ---
Delivery Note - Labor Labor: positive: Spontaneous - Delivery Method Delivery Method: positive: Spontaneous vaginal delivery - Presentation Presentation: positive: Vertex - Nuchal Cord Nuchal Cord: positive: None - Anesthetic Anesthetic Type: - Amniotic Fluid Description Amniotic Fluid Description: positive: Clear - Laceration Laceration: positive: None - Delivery Outcome Delivery Outcome: positive: Livebirth - [place]: positive: Placed in direct skin contact with mother, Cathether, Warmed, [place] used [place] sex: positive: Female - Cord Cord: positive: 3 vessels - Placenta Placenta: positive: Intact, Expressed - Estimated Blood Loss Estimated Blood Loss (in cc): 100 - Post Delivery Events Post Delivery Events: positive: No post delivery events - Delivery Comments (Free Text/Narrative) Delivery Comments (Free Text/Narrative): STAGE I:Patient is a 28-year-old G2, P1 admitted at 40 weeks and 0 days estimated gestational age with an JAVIER of 01/27/2019. She was seen in clinic and had her membranes stripped earlier this afternoon. Exam in clinic was 3 cm/60/high. She went home and started having contractions. She presented to triage for evaluation. On cervical exam, spontaneous rupture of membranes occurred. Fluid was clear. Patient is GBS positive and received 1 dose of ampicillin 2 g IV. Epidural for pain management. She progressed to complete without need for augmentation. Category 1 tracing throughout stage I. STAGE II: Patient pushed well to deliver a viable female infant in direct OA position. Apgars were 8 and 9 with weight pending. No nuchal cord. Infant was delivered to mother's abdomen. Cord clamping was delayed until pulsations ceased. Cord was then clamped x2 and cut. was delivered 3 hours and 59 minutes after the initial dose of ampicillin. STAGE III: Placenta was delivered with manual expression and gentle downward traction on the umbilical cord. It was examined and found to be intact. Perineum was inspected and a right lateral first-degree labial laceration was noted. It was hemostatic and did not require repair. Total EBL was 100 cc. No complications procedure is well-tolerated.
[2019-01-28] MEDS: AMPICILLIN 1 GM in SODIUM CHLORIDE 0.9% MINIBAG 100 ML IV SCH ×3 (05:49→12:14)
[2019-01-28] MEDS: SODIUM CHLORIDE FLUSH 0.9% 10 ML SYRINGE IVP SCH ×2 (08:12→15:52)
[2019-01-28] MEDS: IBUPROFEN 600 MG TABLET PO PRN (11:49)
[2019-01-28] MEDS: DOCUSATE SODIUM 100 MG CAPSULE PO PRN ×2 (11:50→23:07)
--- NOTE | 2019-01-28 17:53 | PROVIDER PROGRESS NOTE ---
Subjective - General Admit Date: 01/27/19 Procedure Date: 01/28/19 Post Op Days: 0 Procedure Performed: - Other Other Information/Narrative: Doing well. Up and ambulating. Tolerating po. Pain well managed. Minimal lochia. Voiding. BF going well. Objective - Patient Data Vital Signs: Vital Signs x48h Temp Pulse Resp BP Pulse Ox 01/28/19 15:59 98.8 F 76 19 116/68 98 01/28/19 12:29 97.9 F 90 18 100 Weight: Weight 01/26/19 01/27/19 01/28/19 23:59 23:59 23:59 Weight (kg) 102.058 kg Intake & Output: Intake and Output Totals x24h 01/26/19 01/27/19 01/28/19 23:59 23:59 23:59 Intake Total 2650.000 Output Total 400 Balance 2250.000 - Lab Results Lab Results: 01/27/19 19:17 Other Lab Results: Lab Results x24hrs 01/27/19 Range/Units 19:17 WBC 25.5 H (4.8-10.8) x10^3/uL RBC 3.75 L (4.20-5.40) 10^6/uL Hgb 11.5 L (12.0-16.0) g/dL Hct 34.5 L (37.0-47.0) % MCV 92.0 (81.0-99.0) fL MCH 30.7 (27.0-31.0) pg MCHC 33.3 (32.0-36.0) g/dL RDW 15.3 H (12.0-15.0) % Plt Count 434 (130-450) 10^3/uL MPV 9.6 (7.9-10.8) fL Neut # (Auto) Not Reportable Lymph # (Auto) Not Reportable [place] # (Auto) Not Reportable Eos # (Auto) Not Reportable Baso # (Auto) Not Reportable Absolute Nucleated RBC Not Reportable Total Counted 100 Band Neuts % (Manual) 3 (0 - 10) % Abnorm Lymph % (Manual) 0 % Nucleated RBC % Not Reportable Neutrophils # (Manual) 22.2 H (1.5-6.6) 10^3/uL Lymphocytes # (Manual) 1.3 L (1.5-3.5) 10^3/uL Monocytes # (Manual) 1.8 H (0.0-1.0) 10^3/uL Eosinophils # (Manual) 0.3 (0-0.7) 10^3/uL Basophils # (Manual) 0.0 (0-0.1) 10^3/uL Differential Comment MANUAL DIFFERENTIAL Manual Slide Review Indicated WBC Morphology NORMAL APPEARANCE (NORMAL) Platelet Estimate NORMAL (130-450,000) (NORMAL) Platelet Morphology NORMAL APPEARANCE (NORMAL) RBC Morph Micro Appear NORMAL APPEARANCE (NORMAL) - Current Medications Current Medications: Current Medications Generic Name Dose Route Start Last Admin Trade Name Freq PRN Reason Stop Dose Admin Acetaminophen 650 mg 01/27/19 20:00 01/28/19 09:13 Tylenol PO Not Given Q6H BASSEM Docusate Sodium 100 mg 01/28/19 03:29 01/28/19 11:50 Colace 100mg Capsule PO 100 mg BID PRN Administration constipation Ampicillin Sodium 1 gm/ Sodium 100 mls @ 200 mls/hr 01/28/19 00:00 01/28/19 12:14 Chloride IV Not Given Q4H BAS[facility] Lactated Ringer's 1,000 mls @ 150 mls/hr 01/27/19 20:00 01/28/19 15:52 Lr IV Not Given .Q6H40M [facility] OXYTOCIN/DEXTROSE 5 % 30 unit in 500 mls @ 1 mls/hr 01/27/19 20:00 01/28/19 15:51 Pitocin/Dextrose 5% IV Infused TITR [facility] Titration Protocol 1 MILLIUNIT/MIN Lactated Ringer's 1,000 mls @ 100 mls/hr 01/28/19 04:00 01/28/19 15:53 Lr IV Not Given .Q10H [facility] Ibuprofen 600 mg 01/28/19 03:29 01/28/19 11:49 Motrin PO 600 mg Q6H PRN Administration pain Sodium Chloride 10 ml 01/28/19 01:00 01/28/19 15:52 Normal Saline Flush 0.9% IVP Not Given 0100,0900,1700 [facility] - Physical Exam Eyes Bilateral: positive: Normal inspection Respiratory: positive: No respiratory distress Cardiovascular: positive: Regular rate & rhythm Abdomen: positive: Non-tender, Other (FF below umbi) Skin: positive: Color nml Extremities: positive: Non-tender, No pedal edema Neurologic/Psychiatric: positive: Oriented x3 Impression/Plan - Problem List Problem List: PPD#0 Doing well Routine pp care Anticipate DC home in am DC meds sent to [facility] Routine DC instructions given
[2019-01-29] MEDS: IBUPROFEN 600 MG TABLET PO PRN (06:08)
--- NOTE | 2019-01-29 09:27 | PROVIDER PROGRESS NOTE ---
Subjective - Subjective Subjective: The patient is doing exceptionally well this morning. She is ambulating well and tolerating diet well. She is passing flatus.She is breast-feeding without difficulty. She is voiding without difficulty.She states her lochia is light.She would like to go home. Objective - Vital Signs/Intake & Output Vital Signs: Vital Signs x48h Temp Pulse Resp BP Pulse Ox 01/29/19 08:20 36.8 C 80 18 107/62 99 01/29/19 05:57 36.8 C 77 18 112/61 100 Intake & Output: Intake & Output 01/26/19 01/27/19 01/28/19 01/29/19 23:59 23:59 23:59 23:59 Intake Total 2650.000 Output Total 400 Balance 2250.000 - Lab Results Fish Bones: 01/27/19 19:17 - Other Results/Comments Other Results/Comments: Laboratory Tests 01/27/19 19:17 WBC 25.5 H RBC 3.75 L Hgb 11.5 L Hct 34.5 L MCV 92.0 MCH 30.7 MCHC 33.3 RDW 15.3 H Plt Count 434 MPV 9.6 Neut # (Auto) Not Reportable Lymph # (Auto) Not Reportable [place] # (Auto) Not Reportable Eos # (Auto) Not Reportable Baso # (Auto) Not Reportable Absolute Nucleated RBC Not Reportable Total Counted 100 Band Neuts % (Manual) 3 Abnorm Lymph % (Manual) 0 Nucleated RBC % Not Reportable Neutrophils # (Manual) 22.2 H Lymphocytes # (Manual) 1.3 L Monocytes # (Manual) 1.8 H Eosinophils # (Manual) 0.3 Basophils # (Manual) 0.0 Differential Comment MANUAL DIFFERENTIAL Manual Slide Review Indicated WBC Morphology NORMAL APPEARANCE Platelet Estimate NORMAL (130-450,000) Platelet Morphology NORMAL APPEARANCE RBC Morph Micro Appear NORMAL APPEARANCE Abdomen: The abdomen is soft, pliable and nontender. The uterus is firm and nontender 2 fingerbreadths below the umbilicus. Assessment/Plan - Problem List (1) (normal spontaneous vaginal delivery) Impression: day #1: Stable Plan: The patient will be discharged home with both written and verbal instructions which included such things as: 1. No lifting, tampons douching or intercourse 2. The patient is to report any temperatures greater than 100.4 or heavy vaginal bleeding such as a hemorrhage 3. She does not drive a car for the next 2 weeks 4. She will increase her fluids and continue her vitamins and use her iron twice a day 5. She will use ibuprofen 600 mg p.o. 3 times daily as needed for cramping 6. As long as she does well she will be seen in the office in 1 week. She will call sooner if she has problems.
[2019-01-29] MEDS: MEASLES,MUMPS & RUBELLA VACC 0.5 ML VIAL SUBQ ONE ×2 (15:02→15:05)
[2019-01-29 15:13] VITALS: BP 119/59
--- NOTE | 2019-01-29 15:34 | Labor Flowsheet ---
Labor Flowsheet Datetime Report Generated by CPN: 01/29/2019 15:33 Datetime: 01/29/2019 15:11 VITAL SIGNS NBP Sys/Molly/Mean (mmHg): 119 : 59 : 73 Pulse: 78 LaborFlag: Labor Datetime: 01/28/2019 01:03 SpO2 (%): 98 Datetime: 01/28/2019 00:26 Membranes Ruptured Date/Time: 01/27/2019 18:53 Membranes Rupture Method: Spontaneous Amniotic Fluid Color: Clear Amniotic Fluid Amount: Small Amniotic Fluid Odor: Normal Datetime: 01/28/2019 00:14 STAGE 2 Pushing: Urge to Push Pushing Position: Pushing with Contractions Pushing Progress: Descent with Pushing Datetime: 01/28/2019 00:00 ASSESSMENT A Monitor Mode: Telemetry FHR Baseline Rate : 140 FHR Baseline Changes: No Baseline Change Variability: Moderate 6-25 bpm Accelerations: 10X10 Decelerations: Variable Category: Category II Datetime: 01/27/2019 23:45 UTERINE ACTIVITY Monitor Mode: External Frequency (min): 1.5-3 Quality: Strong Duration (sec): 70-120 Pattern: Normal: <= 5 Contractions in 10 Minutes Resting Tone (Palpate): Relaxed Oxygen Method: Room Air Datetime: 01/27/2019 23:39 Stage of : Labor Station: 2 Exam by: Dr Medrano Provider Reviewed Strip: Yes Strip Reviewed by: Mitchell COMMUNICATION Communication: Provider at Bedside Provider Notified (Name): Dr Medrano Notification Reason: Status Update; Status; Labor Status; Pain Datetime: 01/27/2019 23:30 TEACHING Instructional Method: Verbal; Patient Instructed; Family/Support Person Instructed; Verbalized Unde rstanding Plan of Care: Plan of Care Discussed; Vaginal Delivery Unit Routine: Unit Personnel Labor/Induction: Pushing Methods Datetime: 01/27/2019 23:28 PAIN Pain Scale: 0 Pain Presence: Intermittent Pain Type: Contraction; Pressure Pain Location: Back; Perineum Pain Goal: 3 Pain Relief Measures: Epidural Given Pain Coping: Breathing Through Contractions Anesthesia Level Check: T10- Umbilicus Datetime: 01/27/2019 22:46 Communication Comments: Dr. Medrano @ bedside. Patient to labor down for next hour. Datetime: 01/27/2019 22:44 VAGINAL EXAM Dilatation (cm): 10.0 Effacement (%): 100 Vaginal Exam Comments: Pt feeling pushy. Dr. Medrano called. Datetime: 01/27/2019 22:43 Comments: patient sitting for epidural, maternal heart coincidence Datetime: 01/27/2019 22:42 Patient Position/Activity: HOB Lowered; Right Tilt; Semi-Fowlers Datetime: 01/27/2019 22:38 Epidural Procedure: Loading Dose Anesthesia Comments: 7ml bolus Datetime: 01/27/2019 22:28 PROCEDURE TIME OUT Procedure Verify: Correct Patient Identity; Accurate Procedure Consent Form; Agreement on Procedure to be Done; Correct Patient Position ANESTHESIA Anesthesia Plans: Epidural Epidural Positioning: Sitting Datetime: 01/27/2019 22:24 Patient Care Comments: Patient being positioned for epidural placement Datetime: 01/27/2019 20:35 Medication Comments: Nitrous Oxide started Datetime: 01/27/2019 20:14 MEDICATIONS Antibiotics: Ampicillin IV 2 Gm PATIENT CARE IV/Blood Work: IV Started; IV Infusing per Order; IV Bag Number @ 1
== END 2019-01-29 15:32 | disposition home or self-care (01) | DRG 807 ==
LOC: WFO 18:36 → FBP 18:42 → WFO 19:04 → UNDOADMIN 19:05 → FBP 19:05
PROVIDERS: ADMIT Obstetrics & Gynecology; ATTEND Obstetrics & Gynecology
PROC: 10E0XZZ Delivery of Products of Conception, External Approach (ICD-10-PCS; principal; 2019-01-28)
DX: O99.824 Streptococcus B carrier state complicating childbirth (principal); O70.0 First degree perineal laceration during delivery; Z37.0 Single live birth; Z3A.40 40 weeks gestation of pregnancy
CPT/HCPCS: 36415; 85025; A9270; J3010; J7120